=== PATIENT | male | born 1950 | race Caucasian/White ===

== ENCOUNTER → 2016-10-27 | Outpatient (CLI) | payer OTHER ==
[2016-10-18 11:25] VITALS: BP 144/78
[~2016-10-27] MED LIST: AMLO5TAB2 PO; ATOR10TA60 PO; CARV25TA2 PO; DOXA4TAB3 PO; INSU100V8 SQ; LOSA100T6 PO; NABU500T PO; TRIA1TAB3 PO
--- NOTE | 2016-10-27 10:16 | RAD ---
Indication CVA. Grayscale color Doppler and spectral imaging was performed. Examination was targeted to the carotid bifurcations. On the right there is only minimal plaquing. Color Doppler images do not suggest significant turbulence. The common carotid waveform and velocities are normal. The external carotid has a normal appearance. The internal carotid waveform and velocities are also normal. The vertebral is patent and demonstrates normal directional flow. The right subclavian artery appears unremarkable. On the left there is minimal plaquing at the bifurcation similar to the contralateral side. The color Doppler images do not suggest significant turbulence. There is a slightly elevated peak velocity involving the common carotid relative to the contralateral side. This is nonspecific. The external carotid has a normal appearance. The internal carotid waveform and velocities are normal. The left vertebral is small and difficult to visualize but appears to have normal antegrade flow. The left subclavian is unremarkable. IMPRESSION: No evidence of hemodynamically significant stenosis at either carotid bifurcation. Stenosis 0-50%. Note: Stenosis calculations for CT, MR and conventional angiography are based upon determination of the distal ICA diameter in accordance with the NASCET methodology. Stenosis calculations for doppler studies are derived from validated velocity criteria which are known to correlate with NASCET methodology of determining stenosis.
== END | disposition home or self-care (01) ==
LOC: US 07:57
PROVIDERS: ATTEND Family Medicine
DX: I63.9 Cerebral infarction, unspecified (principal); I65.23 Occlusion and stenosis of bilateral carotid arteries
CPT/HCPCS: 93880

== ENCOUNTER → 2016-12-23 | Outpatient (CLI) | payer OTHER ==
[2016-10-18 11:25] VITALS: BP 144/78
[2016-12-23 11:11] LABS: BASO % 1 % (0-3); EOS % 3 % (0-3); HEMATOCRIT 42.4 % (39.0-53.0); HEMOGLOBIN 14.2 g/dL (13.0-17.5); LYMPH # 1.3 x10^3/uL (1.0-4.8); LYMPH % 20 % (24-48); MEAN CORPUSCULAR HEMOGLOBIN 29 pg (25-35); MEAN CORPUSCULAR HGB CONC 34 g/dL (31-37); MEAN CORPUSCULAR VOLUME 86 fL (79-100); MONO % 9 % (0-9); NEUT % 67 % (31-73); PLATELET COUNT 197 x10^3/uL (140-400); RED BLOOD COUNT 4.94 x10^6/uL (4.30-5.70); RED CELL DISTRIBUTION WIDTH 13.4 % (11.5-14.5); WHITE BLOOD COUNT 6.6 x10^3/uL (4.0-11.0)
[2016-12-23 11:31] LABS: ALBUMIN 2.9 g/dL (3.4-5.0); ALBUMIN/GLOBULIN RATIO 0.7 (1.0-1.7); CALCIUM 9.1 mg/dL (8.5-10.1); CREATININE 1.9 mg/dL (0.7-1.3); GFR 35.4; POTASSIUM 4.8 mmol/L (3.5-5.1); TOTAL BILIRUBIN 0.4 mg/dL (0.2-1.0); TOTAL PROTEIN 6.8 g/dL (6.4-8.2)
[2016-12-23 11:34] LABS: CHOLESTEROL/HDL RATIO 3.1
== END | disposition home or self-care (01) ==
LOC: LAB 10:25
PROVIDERS: ATTEND Family Medicine
DX: E11.40 Type 2 diabetes mellitus with diabetic neuropathy, unspecified (principal); E11.22 Type 2 diabetes mellitus with diabetic chronic kidney disease; I10 Essential (primary) hypertension; Z68.38 Body mass index [BMI] 38.0-38.9, adult; E78.2 Mixed hyperlipidemia
CPT/HCPCS: 36415; 80053; 80061; 82043; 83036; 85027

== ENCOUNTER → 2017-04-28 | Outpatient (CLI) | payer OTHER ==
[2016-10-18 11:25] VITALS: BP 144/78
[2017-04-28 09:26] LABS: ALBUMIN 2.8 g/dL (3.4-5.0); ALBUMIN/GLOBULIN RATIO 0.6 (1.0-1.7); CALCIUM 8.7 mg/dL (8.5-10.1); CREATININE 1.9 mg/dL (0.7-1.3); GFR 35.4; POTASSIUM 4.6 mmol/L (3.5-5.1); TOTAL BILIRUBIN 0.3 mg/dL (0.2-1.0); TOTAL PROTEIN 7.2 g/dL (6.4-8.2)
== END | disposition home or self-care (01) ==
LOC: LAB 08:35
PROVIDERS: ATTEND Family Medicine
DX: E11.21 Type 2 diabetes mellitus with diabetic nephropathy (principal); I10 Essential (primary) hypertension; E78.2 Mixed hyperlipidemia; Z68.38 Body mass index [BMI] 38.0-38.9, adult
CPT/HCPCS: 36415; 80053; 82043; 83036

== ENCOUNTER → 2017-04-29 | Outpatient (CLI) | payer OTHER ==
[2016-10-18 11:25] VITALS: BP 144/78
[2017-04-29 08:54] LABS: CHOLESTEROL/HDL RATIO 2.9
== END | disposition home or self-care (01) ==
LOC: LAB 08:15
PROVIDERS: ATTEND Family Medicine
DX: E11.21 Type 2 diabetes mellitus with diabetic nephropathy (principal); I10 Essential (primary) hypertension; E78.2 Mixed hyperlipidemia; Z68.38 Body mass index [BMI] 38.0-38.9, adult
CPT/HCPCS: 36415; 80061

== ENCOUNTER → 2017-07-26 | Outpatient (CLI) | payer OTHER ==
[2016-10-18 11:25] VITALS: BP 144/78
[2017-07-26 08:23] LABS: ALBUMIN 2.8 g/dL (3.4-5.0); ALBUMIN/GLOBULIN RATIO 0.6 (1.0-1.7); CALCIUM 9.4 mg/dL (8.5-10.1); CREATININE 2.2 mg/dL (0.7-1.3); GFR 29.8; POTASSIUM 4.4 mmol/L (3.5-5.1); TOTAL BILIRUBIN 0.3 mg/dL (0.2-1.0); TOTAL PROTEIN 7.3 g/dL (6.4-8.2)
[2017-07-26 08:25] LABS: CHOLESTEROL/HDL RATIO 4.5
== END | disposition home or self-care (01) ==
LOC: LAB 07:32
PROVIDERS: ATTEND Family Medicine
DX: E11.42 Type 2 diabetes mellitus with diabetic polyneuropathy (principal); E11.21 Type 2 diabetes mellitus with diabetic nephropathy; E78.00 Pure hypercholesterolemia, unspecified
CPT/HCPCS: 36415; 80053; 80061; 83036

== ENCOUNTER → 2017-10-26 | Outpatient (CLI) | payer OTHER ==
[2017-10-26] MEDS: OXYMETAZOLINE 0.05% NASAL SPRAY 30ML BOTTLE. NS (23:00)
== END | disposition home or self-care (01) ==
LOC: SLPLAB 20:13
DX: G47.33 Obstructive sleep apnea (adult) (pediatric) (principal); I10 Essential (primary) hypertension; E11.9 Type 2 diabetes mellitus without complications; R06.83 Snoring
CPT/HCPCS: 95810

== ENCOUNTER → 2017-12-19 | Outpatient (CLI) | payer OTHER ==
[2017-12-19 11:46] LABS: ALBUMIN 2.8 g/dL (3.4-5.0); ALBUMIN/GLOBULIN RATIO 0.6 (1.0-1.7); ALK PHOS 81 U/L (46-116); ALT (SGPT) 27 U/L (16-63); ANION GAP 6 (6-14); AST (SGOT) 21 U/L (15-37); BLOOD UREA NITROGEN 33 mg/dL (8-26); BUN/CREATININE RATIO 17 (6-20); CALCIUM 9.7 mg/dL (8.5-10.1); CARBON DIOXIDE 29 mmol/L (21-32); CHLORIDE 99 mmol/L (98-107); CHOLESTEROL 239 mg/dL (0-200); CREATININE 1.9 mg/dL (0.7-1.3); GFR 35.3; GLUCOSE 248 mg/dL (70-99); HDLC 50 mg/dL (40-60); LDLC 162 mg/dL (0-100); NON-HDL CHOLESTEROL 189 mg/dL (0-129); POTASSIUM 4.6 mmol/L (3.5-5.1); SODIUM 134 mmol/L (136-145); TOTAL BILIRUBIN 0.3 mg/dL (0.2-1.0); TOTAL PROTEIN 7.6 g/dL (6.4-8.2); TRIGLYCERIDES 135 mg/dL (0-150); VLDLC 27 mg/dL (0-40)
[2017-12-19 11:48] LABS: CHOLESTEROL/HDL RATIO 4.8
[2017-12-19 22:20] LABS: MICROALBUMIN, RANDOM URINE 1868.3 ug/mL (Not Estab.)
== END | disposition home or self-care (01) ==
LOC: LAB 10:52
DX: E11.42 Type 2 diabetes mellitus with diabetic polyneuropathy (principal); R41.3 Other amnesia; R60.0 Localized edema; R26.9 Unspecified abnormalities of gait and mobility
CPT/HCPCS: 36415; 80053; 80061; 82043; 83036

== ENCOUNTER → 2017-12-22 | Outpatient (CLI) | payer OTHER | END | disposition home or self-care (01) | LOC: ECHO 12:52 | DX: I11.9 Hypertensive heart disease without heart failure (principal); I27.20 Pulmonary hypertension, unspecified; I36.1 Nonrheumatic tricuspid (valve) insufficiency; R60.0 Localized edema | CPT/HCPCS: 93306 ==

== ENCOUNTER → 2018-02-15 | Outpatient (CLI) | payer OTHER ==
[2018-02-16 11:47] LABS: MICROALBUMIN, RANDOM URINE 2998.1 ug/mL (Not Estab.)
== END | disposition home or self-care (01) ==
LOC: LAB 11:43
DX: I13.10 Hypertensive heart and chronic kidney disease without heart failure, with stage 1 through stage 4 chronic kidney disease, or unspecified chronic kidney disease (principal); E11.22 Type 2 diabetes mellitus with diabetic chronic kidney disease; E11.42 Type 2 diabetes mellitus with diabetic polyneuropathy; N18.9 Chronic kidney disease, unspecified; E78.00 Pure hypercholesterolemia, unspecified; Z68.39 Body mass index [BMI] 39.0-39.9, adult
CPT/HCPCS: 82043